=== PATIENT | male | born 1995 | race Caucasian/White ===

== ENCOUNTER 2018-10-28 10:05 | Emergency (ER) | payer BC ==
[~2018-10-28] VITALS: Ht 180.3 cm; Wt 59.0 kg
--- NOTE | 2018-10-28 10:33 | NUR ---
SONU GIL AT BEDSIDE FOR MSE.
--- NOTE | 2018-10-28 10:56 | NUR ---
20G IV ACCESS ESTABLISHED IN L[facility] PER MD ORDER.
[2018-10-28 11:02] LABS: BASOPHILS # (AUTO) 0.1 K/uL (0.0-8.0); BASOPHILS % (AUTO) 1.1 % (0.0-2.0); EOSINOPHILS # (AUTO) 0.2 K/uL (0.0-0.7); EOSINOPHILS % (AUTO) 3.1 % (0.0-7.0); HEMATOCRIT 43.1 % (36.7-47.1); HEMOGLOBIN 14.9 g/dL (12.5-16.3); LYMPHOCYTES # (AUTO) 1.5 K/uL (20.0-40.0); LYMPHOCYTES % (AUTO) 29.3 % (20.5-51.5); MEAN CORPUSCULAR HEMOGLOBIN 33.9 uug (23.8-33.4); MEAN CORPUSCULAR HGB CONC 35 g/dL (32.5-36.3); MEAN CORPUSCULAR VOLUME 98.4 fL (73.0-96.2); MONOCYTES # (AUTO) 0.5 K/uL (2.0-10.0); MONOCYTES % (AUTO) 10.3 % (0.0-11.0); NEUTROPHILS # (AUTO) 2.8 K/uL (1.8-8.9); NEUTROPHILS % (AUTO) 56.2 % (38.5-71.5); PLATELET COUNT (AUTO) 183 K/uL (152-348); RED BLOOD CELL COUNT(AUTO) 4.38 MIL/uL (4.06-5.63)
[2018-10-28 11:03] LABS: CREATININE 0.8 mg/dL (0.6-1.3); POTASSIUM 4.2 mmol/L (3.5-5.1)
[2018-10-28] MEDS ORDERED: SWABABLE VALVE TRANSFER SET EA MC ONE (11:04)
[2018-10-28] MEDS ORDERED: IV NORMAL SALINE 250 ML IV ONE (11:05)
[2018-10-28] MEDS ORDERED: IOHEXOL 300MG/ML 100 ML INFUS..BTL ONE (11:05)
--- NOTE | 2018-10-28 11:22 | NUR ---
PT TAKEN TO RADIOLOGY FOR CT SCAN.
--- NOTE | 2018-10-28 11:35 | NUR ---
PT BACK IN ER FROM RADIOLOGY.
--- NOTE | 2018-10-28 12:06 | NUR ---
Patient discharged to home in stable conditon. Written and verbal after care instructions given. Patient verbalizes understanding of instructions. ALL BELONGINGS W/ PT. PT SELF-AMBULATED W/O DIFFICUTLY. 20G IV ACCESS IN [facility] REMOVED PRIOR TO D/C - INNER CANNULA INTACT.
[2018-10-28 12:07] VITALS: BP 136/82
== END 2018-10-28 12:08 | disposition home or self-care (01) ==
LOC: ER 10:05
DX: L03.211 Cellulitis of face (principal)
CPT/HCPCS: 36415; 70487; 80048; 85025; 99284; Q9967; A4663; J7050